=== PATIENT | female | born 1990 | race Caucasian/White ===

== ENCOUNTER 2020-08-07 10:42 | Outpatient (REF) | payer OTHER, SELFPAY ==
[2020-08-07 17:29] LABS: COVID-19 Test Negative (Negative)
== END 2020-08-07 10:43 | disposition home or self-care (01) ==
LOC: HO.LAB 10:42
PROVIDERS: PCP Internal Medicine; Visit Provider Internal Medicine
DX: Z20.828 Contact with and (suspected) exposure to other viral communicable diseases (principal)
CPT/HCPCS: 36415; 87635

== ENCOUNTER 2021-02-24 08:10 | Outpatient (REF) | payer OTHER, SELFPAY ==
[2021-02-24 09:47] LABS: Free T4 (Free Thyroxine) 0.89 ng/dL (0.71-1.85)
[2021-02-26 07:56] LABS: Vitamin B12 850 pg/mL (200-900)
== END 2021-02-24 08:11 | disposition home or self-care (01) ==
LOC: HO.LAB 08:10
PROVIDERS: Visit Provider Internal Medicine
DX: Z00.00 Encounter for general adult medical examination without abnormal findings (principal)
CPT/HCPCS: 36415; 82607; 84439; 84443

== ENCOUNTER 2024-01-06 19:03 | Emergency (ER) | payer OTHER, SELFPAY ==
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
[2024-01-06 19:34] VITALS: BP 108/70; BP 112/82; PULSE 83; PULSE 90; RESP 16; TEMP 37.2; O2SAT 97; BMI 17.7
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
[2024-01-06] MEDS: Acetaminophen 325 MG TABLET 975 MG PO (19:53)
--- NOTE | 2024-01-06 19:54 | PC.NURSE ---
pt medicated for 7/10 pain- to bilateral knees and neck/head
[2024-01-06 20:34] LABS: MANUAL DIFF FLAG NO
[2024-01-06 20:36] LABS: Basophils Absolute Auto 0.1 X10*3/uL (0.0-0.2); Basophils Percent Auto 0.6 % (0-2); Eosinophils Percent Auto 0.3 % (0-4); Hematocrit 37.3 % (37.0-47.0); Hemoglobin 12.9 g/dl (12.0-16.0); Imm Gran Abs Auto 0.02 X10*3/uL (0.00-0.03); Imm Gran Pct Auto 0.2 % (0.0-0.4); Lymphocytes Absolute Auto 1.9 X10*3/uL (1.2-4.9); Lymphocytes Percent Auto 20.6 % (20-40); Mean Corpuscular HGB Conc 34.6 g/dl (31.0-35.0); Mean Corpuscular Hemoglobin 30.9 pg (27.0-33.0); Mean Corpuscular Volume 89.4 fL (80.0-98.0); Mean Platelet Volume 10.1 fL (9.4-12.3); Monocytes Absolute Auto 0.6 X10*3/uL (0.1-1.2); Monocytes Percent Auto 6.6 % (2-11); Neutrophils Absolute Auto 6.4 x10*3/uL (2.0-8.3); Neutrophils Percent Auto 71.7 % (45-73); Platelet Count 243 X10*3/uL (160-400); Red Blood Count 4.17 X10*6/uL (4.20-5.50); Red Cell Distribution Width 12.6 % (11.0-16.0)
[2024-01-06 20:55] LABS: Alanine Aminotransferase 11 U/L (0-31); Albumin Level 4.4 g/dL (3.5-5.0); Alkaline Phosphatase 45 U/L (39-117); Anion Gap 9 (12-20); Aspartate Amino Transferase 11 U/L (5-31); Bilirubin Total 0.4 mg/dL (0.0-1.0); Blood Urea Nitrogen 17 mg/dL (9-16); Calcium 9.4 mg/dL (8.4-10.2); Carbon Dioxide 26 mmol/L (22-29); Chloride 109 mmol/L (96-108); Creatinine Clr Calc Pharmacy 84.9; Estimated Glomerular Filt Rate > 60; Glucose Random 101 mg/dL (60-115); Potassium 4.1 mmol/L (3.3-5.1); Sodium 140 mmol/L (135-145); Total Protein 6.8 g/dL (6.5-8.0)
[2024-01-06 21:03] LABS: HCG Quantitative < 2 mIU/mL
== END 2024-01-06 21:56 | disposition home or self-care (01) ==
PROVIDERS: Nurse Practitioner Family; Emergency Provider Emergency Medicine
DX: S09.90XA Unspecified injury of head, initial encounter (principal); S16.1XXA Strain of muscle, fascia and tendon at neck level, initial encounter; S83.91XA Sprain of unspecified site of right knee, initial encounter; V43.62XA Car passenger injured in collision with other type car in traffic accident, initial encounter; R10.30 Lower abdominal pain, unspecified; Y93.89 Activity, other specified; Y92.414 Local residential or business street as the place of occurrence of the external cause; Y99.9 Unspecified external cause status
CPT/HCPCS: 36415; 70450; 71250; 72125; 73560; 73590; 74176; 80053; 84702; 85025; 99283; 99284

== ENCOUNTER 2024-01-11 19:23 | Emergency (ER) | payer OTHER, SELFPAY ==
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
[2024-01-11 19:54] VITALS: BP 95/59; PULSE 71; RESP 16; TEMP 36.3; O2SAT 99; BMI 23.0
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
[2024-01-11] MEDS: 0.9 % Sodium Chloride 1,000 ML 999 ML IV (23:17)
[2024-01-11] MEDS: diphenhydrAMINE HCL 50 MG/ML VIAL 25 MG IVPUSH (23:18)
[2024-01-11] MEDS: Ketorolac Tromethamine 15 MG/ML VIAL IVPUSH (23:20)
[2024-01-11] MEDS: Metoclopramide HCl 10 MG/2 ML VIAL IVPUSH (23:22)
[2024-01-11 23:41] VITALS: BP 93/53; PULSE 68; RESP 15; TEMP 36.8; O2SAT 98
== END 2024-01-12 01:24 | disposition home or self-care (01) ==
PROVIDERS: Emergency Provider Emergency Medicine
DX: R51.9 Headache, unspecified (principal); M54.2 Cervicalgia; R11.2 Nausea with vomiting, unspecified; R42 Dizziness and giddiness
CPT/HCPCS: 70450; 72125; 96361; 96374; 96375; 99283; 99284; J1200; J1885; J2765